=== PATIENT | male | born 1955 | race Caucasian/White ===

== ENCOUNTER → 2016-09-17 | Outpatient (CLI) | payer OTHER, BC ==
--- NOTE | ~2016-09-17 | 2DMMODE ---
[facility] [employer] [place] [place] [address] 2 D/M-MODE ECHOCARDIOGRAM Name: BARRYARTIS GOMEZ JR Room #: REG CL Marian#: [id number] Admission: 09/17/16 Attend Phys: Isabell Beavers Discharge: Date of : 53 Date of Service: 09/17/16 1330 Report #: [id number] THIS REPORT FOR: //name// Transthoracic Echocardiography Ordering physician: Isabell Molina Referring physician: Isabell Molina College Archivist: Liz Rashid Indications/History: Hypertension. Hx: HTN, HLP BP: 135 / HR: 54bpm Height: 71in Weight: 23lb 84 Study data: M-mode, complete 2D, complete spectral Doppler, and color Doppler. Location: Echo laboratory. Routine. Image quality was adequate. 2D measurements Normal Normal LVID ED 53.4mm 36-57 IVS ED 11.4mm 6-11 LVID ES 34.6mm 23-40 LVPW ED 11.3mm 6-11 LA volume 23ml/m2 16-28 AoRoot diam 38.3mm 21-37 index ED LVOT diameter 23mm 18-23 Findings: Left ventricle: The cavity size was normal. Wall thickness was normal. Systolic function was normal. The estimated ejection fraction was in the range of 55% to 60%. Wall motion was normal. Right ventricle: The cavity size was normal. Systolic function was normal. Right atrium: The atrium was normal in size. Left atrium: The atrium was normal in size. Volume index: 23ml/m2 (S). Aortic valve: Structurally normal valve. Doppler: There was no stenosis. Trivial regurgitation. Peak velocity: 131.4cm/s (S). [address] [address] 2 D/M-MODE ECHOCARDIOGRAM Name: ARTIS BARRY Room #: ITALIA Fonseca#: [id number] Admission: 09/17/16 Attend Phys: Isabell Quiroz [place] Discharge: Date of : 53 Date of Service: 09/17/16 1330 Report #: [id number] Mitral valve: Mildly calcified leaflets . Doppler: There was no evidence for stenosis. Trivial regurgitation. Peak E-wave velocity: 50.2cm/s. Peak A-wave velocity: 59.8cm/s. Tricuspid valve: Structurally normal valve. Doppler: There was no evidence for stenosis. Trivial regurgitation. Regurgitant peak velocity: 201cm/s. Peak RV-RA gradient: 16mm Hg (S). Pulmonic valve: Structurally normal valve. Doppler: There was no evidence for stenosis. Trivial regurgitation. Pericardium: There was no pericardial effusion. Aorta: Aortic root: The aortic root measured at the upper limits of normal. Pulmonary artery: Systolic pressure was estimated to be 21mm Hg. Diastolic function: Doppler parameters are consistent with abnormal left ventricular relaxation (grade 1 diastolic dysfunction). Systemic veins: Inferior vena cava: The vessel was normal in size; the respirophasic diameter changes were in the normal range (= 50%). Conclusions 1. Left ventricle: The cavity size was normal. Wall thickness was normal. Systolic function was normal. The estimated ejection fraction was in the range of 55% to 60%. 2. Aortic valve: Structurally normal valve. Trivial regurgitation. 3. Mitral valve: Mildly calcified leaflets . There was no evidence for stenosis. Trivial regurgitation. 4. Pulmonic valve: Trivial regurgitation. 5. Tricuspid valve: Structurally normal valve. Trivial regurgitation. 6. Pulmonary arteries: Systolic pressure was estimated to be 21mm Hg. 7. Inferior vena cava: The vessel was normal in size; the [facility] [address] [place] [address] 2 D/M-MODE ECHOCARDIOGRAM Name: ARTIS BARRY Room #: REG M.R.#: [id number] Admission: 09/17/16 Attend Phys: Isabell Beavers Discharge: Date of : 53 Date of Service: 09/17/16 1330 Report #: [id number] respirophasic diameter changes were in the normal range (= 50%). <ELECTRONICALLY SIGNED> By: Magnus Griffin MD 09/17/16 1629 28 Magnus Griffin MD /william
== END ==
LOC: CV 13:14
DX: I10 Essential (primary) hypertension (principal); E78.5 Hyperlipidemia, unspecified